=== PATIENT | female | born 1950 | race Two or more races ===

== ENCOUNTER → 2018-11-24 | Outpatient (CLI) | payer OTHER | END | disposition home or self-care (01) | LOC: NUCLEAR 08:28 | DX: C90.00 Multiple myeloma not having achieved remission (principal) | CPT/HCPCS: 78816; A9552 ==

== ENCOUNTER 2020-01-26 08:18 | Outpatient (CLI) | payer OTHER | END 2020-01-26 09:43 | disposition home or self-care (01) | LOC: NUCLEAR 08:18 | DX: C90.00 Multiple myeloma not having achieved remission (principal) | CPT/HCPCS: 78815; A9552 ==